=== PATIENT | male | born 1975 | race African-American/Black ===

== ENCOUNTER 2018-02-16 20:19 | Emergency (ER) | payer OTHER ==
[~2018-02-16] VITALS: Ht 182.9 cm; Wt 117.9 kg
[2018-02-16 20:25] VITALS: BP 140/82
[2018-02-16] MEDS ORDERED: ORPH100T PO (20:53)
[2018-02-16] MEDS ORDERED: HYDR-3164 PO (20:53)
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
== END 2018-02-16 20:52 | disposition home or self-care (01) ==
LOC: ER 20:19
DX: S29.012A Strain of muscle and tendon of back wall of thorax, initial encounter (principal); V43.52XA Car driver injured in collision with other type car in traffic accident, initial encounter; Y93.I9 Activity, other involving external motion; Y92.488 Other paved roadways as the place of occurrence of the external cause; Y99.8 Other external cause status
CPT/HCPCS: 99283

== ENCOUNTER 2019-02-02 15:58 | Emergency (ER) | payer OTHER ==
[~2019-02-02] VITALS: Ht 177.8 cm; Wt 89.8 kg
[~2019-02-02 15:58] MED LIST: HYDR-3164 PO; ORPH100T PO
[2019-02-02 16:12] VITALS: BP 128/73
[2019-02-02] MEDS ORDERED: IV NORMAL SALINE 1000ML BAG 1,000 ML IV ONE (16:30)
[2019-02-02 16:33] LABS: BILIRUBIN,URINE NEGATIVE (NEG); COLOR,URINE YELLOW; NITRITE,URINE NEGATIVE (NEG); PH,URINE 7.5; PROTEIN,URINE NEGATIVE (NEG-TRACE)
[2019-02-02 16:34] LABS: BASO # 0.1 x10^3/uL (0.0-0.2); BASO % 1 % (0-3); EOS # 0.2 x10^3/uL (0.0-0.7); EOS % 3 % (0-3); HEMATOCRIT 42.4 % (39.0-53.0); HEMOGLOBIN 14.3 g/dL (13.0-17.5); LYMPH % 42 % (24-48); MEAN CORPUSCULAR HEMOGLOBIN 30 pg (25-35); MEAN CORPUSCULAR HGB CONC 34 g/dL (31-37); MEAN CORPUSCULAR VOLUME 89 fL (79-100); MONO # 0.6 x10^3/uL (0.0-1.1); MONO % 8 % (0-9); NEUT # 3.3 x10^3/uL (1.8-7.7); NEUT % 46 % (31-73); PLATELET COUNT 316 x10^3/uL (140-400); RED BLOOD COUNT 4.75 x10^6/uL (4.30-5.70); WHITE BLOOD COUNT 7.2 x10^3/uL (4.0-11.0)
[2019-02-02 16:37] LABS: CLARITY,URINE CLEAR
[2019-02-02 16:38] LABS: BACTERIA,URINE 0 /HPF (0-FEW)
[2019-02-02 16:39] LABS: RBC,URINE OCC /HPF (0-2); SPERM,URINE PRESENT /HPF; WBC,URINE OCC /HPF (0-4)
[2019-02-02 16:42] LABS: PROTHROMBIN TIME PATIENT 12.1 SEC (11.7-14.0)
[2019-02-02 16:49] LABS: CALCIUM 9.1 mg/dL (8.5-10.1); CREATININE 1.4 mg/dL (0.7-1.3); GFR 67.6; POTASSIUM 4.4 mmol/L (3.5-5.1)
--- NOTE | 2019-02-02 16:50 | PHYS DOC ---
Past Medical History Past Medical History: Anxiety, Depression Past Surgical History: No Surgical History Alcohol Use: Occasionally Drug Use: None Adult General Chief Complaint Chief Complaint: NEURO SYMPTOMS/DEFICITS [facility] HPI Patient is a 43 year old male patient with history of anxiety and depression who presents with complaining of confusion and passing out. Patient states he was in the bathroom and felt lightheadedness and dizziness and near syncope according to his he was confused for about 5 minutes. Patient states she missed later he numbness of right side of face and his lip with dizziness and then had 1 episodes of syncope per his that last about 10 minutes with eyes rolling back without seizure activity is able to hear his moist but not able to answer. Patient was confused after that episode of syncope but was able to go to the store with his . Patient didn't feel good this morning with generalized weakness and seen by his primary care physician recommended to come to emergency room. Patient denies history of the same problem previously. According to EMR patient had confusion state. Patient denies using drugs or alcohol, chest pain, shortness of breath, focal neuro deficit, suicidal and homicidal ideation. Review of Systems Review of Systems Constitutional: Denies fever or chills [] Eyes: Denies change in visual acuity, redness, or eye pain [] HENT: Denies nasal congestion or sore throat [] Respiratory: Denies cough or shortness of breath [] Cardiovascular: No additional information not addressed in HPI [] GI: Denies abdominal pain, nausea, vomiting, bloody stools or diarrhea [] : Denies dysuria or hematuria [] Musculoskeletal: Denies back pain or joint pain [] Integument: Denies rash or skin lesions [] Neurologic: Denies headache, focal weakness or sensory changes [] Endocrine: Denies polyuria or polydipsia [] All other systems were reviewed and found to be within normal limits, except as documented in this note. Current Medications Current Medications Current Medications Medications (Trade) Dose Ordered Sig/Bret Start Time Stop Time Status Last Admin Dose Admin Sodium Chloride 1,000 ml @ 1,000 mls/hr 1X ONCE 02/02/19 16:30 02/02/19 17:29 DC 02/02/19 16:46 1,000 MLS/HR Allergies Allergies Allergies Coded Allergies Type Severity Reaction Last Updated Verified No Known Drug Allergies 05/06/14 No Physical Exam Physical Exam Constitutional: Well developed, well nourished, mild distress, non-toxic appearance. [] HENT: Normocephalic, atraumatic, bilateral external ears normal, oropharynx moist, no oral exudates, nose normal. [] Eyes: PERRLA, EOMI, conjunctiva normal, no discharge. [] Neck: Normal range of motion, no tenderness, supple, no stridor. [] Cardiovascular:Heart rate regular rhythm, no murmur [] Lungs & Thorax: Bilateral breath sounds clear to auscultation [] Abdomen: Bowel sounds normal, soft, no tenderness, no masses, no pulsatile masses. [] Skin: Warm, dry, no erythema, no rash. [] Back: No tenderness, no CVA tenderness. [] Extremities: No tenderness, no cyanosis, no clubbing, ROM intact, no edema. [] Neurologic: Alert and oriented X 3, normal motor function, normal sensory function, no focal deficits noted. [] Psychologic: Affect normal, judgement normal, mood normal. [] Current Patient Data Vital Signs Vital Signs Date Time Temp Pulse Resp B/P (MAP) Pulse Ox O2 Delivery O2 Flow Rate FiO2 02/02/19 16:03 98.1 71 20 128/73 (91) 100 Room Air 98.1 Lab Values Laboratory Tests Test 02/02/19 16:13 02/02/19 16:20 02/02/19 16:24 Glucose (Fingerstick) 91 mg/dL (70-99) White Blood Count 7.2 x10^3/uL (4.0-11.0) Red Blood Count 4.75 x10^6/uL (4.30-5.70) Hemoglobin 14.3 g/dL (13.0-17.5) Hematocrit 42.4 % (39.0-53.0) Mean Corpuscular Volume 89 fL (79-100) Mean Corpuscular Hemoglobin 30 pg (25-35) Mean Corpuscular Hemoglobin Concent 34 g/dL (31-37) Red Cell Distribution Width 14.0 % (11.5-14.5) Platelet Count 316 x10^3/uL (140-400) Neutrophils (%) (Auto) 46 % (31-73) Lymphocytes (%) (Auto) 42 % (24-48) Monocytes (%) (Auto) 8 % (0-9) Eosinophils (%) (Auto) 3 % (0-3) Basophils (%) (Auto) 1 % (0-3) Neutrophils # (Auto) 3.3 x10^3/uL (1.8-7.7) Lymphocytes # (Auto) 3.0 x10^3/uL (1.0-4.8) Monocytes # (Auto) 0.6 x10^3/uL (0.0-1.1) Eosinophils # (Auto) 0.2 x10^3/uL (0.0-0.7) Basophils # (Auto) 0.1 x10^3/uL (0.0-0.2) Prothrombin Time 12.1 SEC (11.7-14.0) Prothrombin Time INR 0.9 (0.8-1.1) Sodium Level 139 mmol/L (136-145) Potassium Level 4.4 mmol/L (3.5-5.1) Chloride Level 102 mmol/L (98-107) Carbon Dioxide Level 33 mmol/L (21-32) H Anion Gap 4 (6-14) L Blood Urea Nitrogen 12 mg/dL (8-26) Creatinine 1.4 mg/dL (0.7-1.3) H Estimated GFR (Cockcroft-Gault) 67.6 BUN/Creatinine Ratio 9 (6-20) Glucose Level 100 mg/dL (70-99) H Calcium Level 9.1 mg/dL (8.5-10.1) Magnesium Level 2.1 mg/dL (1.8-2.4) Total Bilirubin 0.3 mg/dL (0.2-1.0) Aspartate Amino Transferase (AST) 20 U/L (15-37) Alanine Aminotransferase (ALT) 29 U/L (16-63) Alkaline Phosphatase 80 U/L (46-116) Creatine Kinase 407 U/L (39-308) H Troponin I Quantitative < 0.017 ng/mL (0.000-0.055) Total Protein 7.3 g/dL (6.4-8.2) Albumin 3.8 g/dL (3.4-5.0) Albumin/Globulin Ratio 1.1 (1.0-1.7) Ethyl Alcohol Level < 10 mg/dL (0-10) Urine Collection Type Unknown Urine Color Yellow Urine Clarity Clear Urine pH 7.5 Urine Specific [place] 1.015 Urine Protein Negative mg/dL (NEG-TRACE) Urine Glucose (UA) Negative mg/dL (NEG) Urine Ketones (Stick) Negative mg/dL (NEG) Urine Blood Negative (NEG) Urine Nitrite Negative (NEG) Urine Bilirubin Negative (NEG) Urine Urobilinogen Dipstick 1.0 mg/dL (0.2 mg/dL) Urine Leukocyte Esterase Negative (NEG) Urine RBC Occ /HPF (0-2) Urine WBC Occ /HPF (0-4) Urine Bacteria 0 /HPF (0-FEW) Urine Sperm Present /HPF Urine Opiates Screen Neg (NEG) Urine Methadone Screen Neg (NEG) Urine Barbiturates Neg (NEG) Urine Phencyclidine Screen Neg (NEG) Urine Amphetamine/Methamphetamine Neg (NEG) Urine Benzodiazepines Screen Neg (NEG) Urine Cocaine Screen Neg (NEG) Urine Cannabinoids Screen Neg (NEG) Urine Ethyl Alcohol Neg (NEG) Laboratory Tests 02/02/19 16:20 Laboratory Tests 02/02/19 16:20 EKG EKG EKG interpreted by me. EKG at 16 showed normal sinus rhythm at rate of 76, left axis, nonspecific T-wave abnormality, no acute ST and T-wave elevation. Radiology/Procedures Radiology/Procedures [][address] [address] IMAGING REPORT Signed PATIENT: LINDA DE LA TORRE ACCOUNT: [id number] : 1975 LOCATION: ER AGE: 43 SEX: M EXAM STATUS: REG ER ORD. PHYSICIAN: ROBERT CARLOS MD REASON: confusion PROCEDURE: PORTABLE CHEST 1V PORTABLE CHEST 1V History: Confusion COMPARISON: Image from May 06, 2014. FINDINGS: Heart size is not enlarged. Aorta is mildly tortuous. No evidence of pneumothorax, focal infiltrate or pleural effusion. Bones appear grossly intact. IMPRESSION: No evidence of consolidating infiltrate. Electronically signed by: Dallin Morris MD (02/02/2019 5:10 PM) [facility] DICTATED and SIGNED BY: DALLIN MORRIS MD DATE: 02/02/[address] [address] IMAGING REPORT Signed PATIENT: LINDA DE LA TORRE ACCOUNT: [id number] : 1975 LOCATION: ER AGE: 43 SEX: M EXAM STATUS: REG ER ORD. PHYSICIAN: ROBERT CARLOS MD REASON: Confusion PROCEDURE: CT HEAD WO CONTRAST CT HEAD WO CONTRAST Indication: Confusion. Exposure: One or more of the following individualized dose reduction techniques were utilized for this examination: 1. Automated exposure control 2. Adjustment of the mA and/or kV according to patient size 3. Use of iterative reconstruction technique. Technique: Standard imaging without intravenous contrast. Comparison: May 26, 2014. FINDINGS: No evidence of acute intracranial hemorrhage, mass effect, midline shift or abnormal extra-axial fluid collection. Ventricles and sulci appears symmetric. Prakash-white matter distinction is intact. No significant scalp swelling. The visualized orbits appear unremarkable. Partially visualized sinuses are clear. Mastoids and auditory canals appear grossly clear. IMPRESSION: No evidence of acute intracranial hemorrhage. Consider follow-up with outpatient MR brain if clinically warranted or if symptoms do not improve. Electronically signed by: Dallin Morris MD (02/02/2019 4:52 PM) [facility] DICTATED and SIGNED BY: DALLIN MORRIS MD DATE: 02/02/191651 Course & Med Decision Making Course & Med Decision Making Pertinent Labs and Imaging studies reviewed. (See chart for details) Evaluation of patient showed 43-year-old male patient with history of anxiety and depression and this episode of confusion state presented with complaining of 1 episode of confusion and one episode of possibly syncope happened last night. Patient had unremarkable physical exam and [employer] of 0. CT head, chest x- ray, CBC, urine drug screen UA was unremarkable. CMP showed mild elevation of CK and because of 1.4. Patient treated with IV fluid. Plan discharge patient home with diagnose of confusion and rhabdomyolysis. Patient asking for light duty and was told to follow up with his primary care physician. I've spoken with the patient and/or caregivers. I've explained the patient's condition, diagnosis and treatment plan based on information available to me at this time. I've answered the patient's and/or caregivers questions and addressed any concerns. The patient and/or caregivers have a good understanding the patient's diagnosis, condition and treatment plan as can be expected at this p oint. Vital signs have been stabilized. The patient's condition is stable for discharge from the emergency department. The patient will pursue further outpatient evaluation with her primary care prov ider or other designated consulting physician as outlined in the discharge instructions. Patient and/or caregivers are agreeable to this plan of care and follow-up instructions have been explained in detail. The patient and/or caregivers have received these instructions in written format and expressed understanding of these discharge instructions. The patient and her caregivers are aware that if any significant change in condition or worsening of symptoms should prompt him to immediately return to this of the closest emergency department. If an emergent department is not readily available I would encourage him to call 911. Dragon Disclaimer Dragon Disclaimer This electronic medical record was generated, in whole or in part, using a voice recognition dictation system. Departure Departure Impression: Primary Impression: Rhabdomyolysis Additional Impressions: Renal insufficiency Confusional state Near syncope Disposition: HOME, SELF-CARE (at 1745) Condition: IMPROVED Referrals: CHUCKIE ANNE MD (PCP) MARLON GRANT MD Patient Instructions: Confusion, Rhabdomyolysis Additional Instructions: Drink plenty of liquids Follow-up with your primary care physician in 3-5 days Return to ER if not getting better Follow up with neurologist in 2-3 days NIHSS Stroke Scale NIH Stroke Scale: NIH Stroke Scale Response (Comments) Value Level of Consciousness: 0 Alert/Responsive 0 LOC Questions: 0 Answers both correctly 0 LOC Commands: 0 Performs both tasks 0 Best Gaze: 0 Normal 0 Visual: 0 No visual loss 0 Facial Palsy: 0 Normal, symmetrical 0 Motor - Left Arm 0 No drift 0 Motor - Right Arm 0 No drift 0 Motor - Left Leg 0 No drift 0 Motor: Right Leg 0 No drift 0 Limb Ataxia: 0 Absent 0 Sensory: 0 No loss 0 Best Language: 0 Normal 0 Dysathria: 0 Normal 0 Extinction and Inattention: 0 Normal 0 Total 0 Problem Qualifiers Primary Impression: Rhabdomyolysis Rhabdomyolysis type: non-traumatic Qualified Codes: M62.82 - Rhabdomyolysis ROBERT CARLOS MD Feb 02, 2019 16:50
[2019-02-02 16:53] LABS: BARBITURATES NEG (NEG); BENZODIAZEPINES NEG (NEG); CANNABINOIDS NEG (NEG); COCAINE NEG (NEG); METHADONE NEG (NEG); OPIATES NEG (NEG); PHENCYCLIDINE NEG (NEG)
[2019-02-02 16:54] LABS: ALBUMIN 3.8 g/dL (3.4-5.0); ALBUMIN/GLOBULIN RATIO 1.1 (1.0-1.7); MAGNESIUM 2.1 mg/dL (1.8-2.4); TOTAL BILIRUBIN 0.3 mg/dL (0.2-1.0); TOTAL PROTEIN 7.3 g/dL (6.4-8.2)
--- NOTE | 2019-02-02 16:55 | RAD ---
CT HEAD WO CONTRAST Indication: Confusion. Exposure: One or more of the following individualized dose reduction techniques were utilized for this examination: 1. Automated exposure control 2. Adjustment of the mA and/or kV according to patient size 3. Use of iterative reconstruction technique. Technique: Standard imaging without intravenous contrast. Comparison: May 26, 2014. FINDINGS: No evidence of acute intracranial hemorrhage, mass effect, midline shift or abnormal extra-axial fluid collection. Ventricles and sulci appears symmetric. Prakash-white matter distinction is intact. No significant scalp swelling. The visualized orbits appear unremarkable. Partially visualized sinuses are clear. Mastoids and auditory canals appear grossly clear. IMPRESSION: No evidence of acute intracranial hemorrhage. Consider follow-up with outpatient MR brain if clinically warranted or if symptoms do not improve. Electronically signed by: Dallin Morris MD (02/02/2019 4:52 PM) [facility]
[2019-02-02 16:56] LABS: AMPHETAMINE/METHAMPHETAMINE NEG (NEG)
--- NOTE | 2019-02-02 17:13 | RAD ---
PORTABLE CHEST 1V History: Confusion COMPARISON: Image from May 06, 2014. FINDINGS: Heart size is not enlarged. Aorta is mildly tortuous. No evidence of pneumothorax, focal infiltrate or pleural effusion. Bones appear grossly intact. IMPRESSION: No evidence of consolidating infiltrate. Electronically signed by: Dallin Morris MD (02/02/2019 5:10 PM) [facility]
--- NOTE | 2019-02-03 05:08 | EKG ---
[facility] [address] [place] [address] Test Date: 2019-02-02 Test Time: 16:11:49 Pat Name: LINDA DE LA TORRE Department: Room: Gender: M [employer] T[employer] Maker: : 1975 Requested By: ROBERT CARLOS Order Number: [id number] Reading MD: Oskar An MD Measurements Intervals [place] Rate: 76 P: 0 ND: 156 QRS: -16 QRSD: 82 T: 4 QT: 378 QTc: 429 Interpretive Statements SINUS RHYTHM NON-SPECIFIC ST/T CHANGES Electronically Signed On 02-03-2019 13:27:39 [employer] T[employer] by sOkar An MD
== END 2019-02-02 18:25 | disposition home or self-care (01) ==
LOC: ER 15:58
DX: R41.0 Disorientation, unspecified (principal); R55 Syncope and collapse; M62.82 Rhabdomyolysis; N28.9 Disorder of kidney and ureter, unspecified; F32.9 Major depressive disorder, single episode, unspecified; F41.9 Anxiety disorder, unspecified
CPT/HCPCS: 36415; 70450; 71045; 80053; 80307; 81001; 82550; 82962; 83735; 84484; 85025; 85610; 93005; 96360; 99285; G0480; J7030